=== PATIENT | male | born 1975 ===

== ENCOUNTER 2023-03-14 08:41 | Emergency (ER) | payer SELFPAY ==
[~2023-03-14] VITALS: Ht 170.2 cm; Wt 74.4 kg
--- NOTE | 2023-03-14 09:10 | ED Chest Pain ---
General Chief Complaint: Chest Pain Stated Complaint: CHEST PAIN Source: patient Exam Limitations: no limitations History of Present Illness Date Seen by Provider: Mar 14, 2023 Time Seen by Provider: 08:56 Initial Comments 47-year-old male presents from the [facility] clinic for chest pain. He states symptoms have been present off and on for the last 2 or 3 days but are becoming more frequent. Is described as a pressure in his left anterior chest without radiation. No obvious aggravating or alleviating factors, and not specifically associated with exertion. He has had some occasional nausea with it but no vomiting. No recent fevers chills cough abdominal pain or changes in bowel or bladder habits. He has never had similar symptoms in the past. No known cardiac history. He does take medicines for high blood pressure and high cholesterol. He is a non-smoker. All other systems reviewed and negative except documented per HPI. Voice recognition software was used to help create this chart Allergies and Home Medications Allergies Coded Allergies: No Known Drug Allergies (Unverified , 03/14/23) Patient Home Medication List Home Medication List Reviewed: Yes Review of Systems Review of Systems Constitutional: see HPI Past Jqkwfrf-[id number]-[id number] Hx Patient Social History Tobacco Use?: No Use of E-Cig and/or Vaping dev: No Substance use?: No Alcohol Use?: No Physical Exam Vital Signs Vital Signs - First Documented 03/14/23 03/14/23 08:51 10:04 Temp 36.1 Pulse 72 Resp 17 B/P (MAP) 133/98 (110) Pulse Ox 100 O2 Delivery Room Air Capillary Refill : Height, Weight, BMI Height: '" Weight: lbs. oz. kg; BMI Method: General Appearance: No Apparent Distress, WD/WN HEENT: Normal ENT Inspection, Pharynx Normal Neck: Full Range of Motion, Normal Inspection, Non Tender, Supple Respiratory: Chest Non Tender, Lungs Clear, Normal Breath Sounds, No Accessory Muscle Use, No Respiratory Distress Cardiovascular: Regular Rate, Rhythm, No Murmur, Normal Peripheral Pulses Gastrointestinal: Normal Bowel Sounds, No Organomegaly, Non Tender, Soft Extremity: Normal Capillary Refill, Normal Inspection, No Pedal Edema Neurologic/Psychiatric: Alert, Oriented x3 Skin: Normal Color, Warm/Dry Progress/Results/Core Measures Results/Orders Lab Results Laboratory Tests Test 03/14/23 08:59 Range/Units White Blood Count 4.8 4.3-11.0 10^3/uL Red Blood Count 4.93 4.30-5.52 10^6/uL Hemoglobin 14.3 13.3-17.7 g/dL Hematocrit 44 40-54 % Mean Corpuscular Volume 89 80-99 fL Mean Corpuscular Hemoglobin 29 25-34 pg Mean Corpuscular Hemoglobin Concent 33 32-36 g/dL Red Cell Distribution Width 13.2 10.0-14.5 % Platelet Count 201 130-400 10^3/uL Mean Platelet Volume 10.3 9.0-12.2 fL Immature Granulocyte % (Auto) 0 % Neutrophils (%) (Auto) 56 42-75 % Lymphocytes (%) (Auto) 32 12-44 % Monocytes (%) (Auto) 9 0-12 % Eosinophils (%) (Auto) 2 0-10 % Basophils (%) (Auto) 1 0-10 % Neutrophils # (Auto) 2.7 1.8-7.8 10^3/uL Lymphocytes # (Auto) 1.6 1.0-4.0 10^3/uL Monocytes # (Auto) 0.4 0.0-1.0 10^3/uL Eosinophils # (Auto) 0.1 0.0-0.3 10^3/uL Basophils # (Auto) 0.0 0.0-0.1 10^3/uL Immature Granulocyte # (Auto) 0.0 0.0-0.1 10^3/uL Sodium Level 139 135-145 MMOL/L Potassium Level 4.5 3.6-5.0 MMOL/L Chloride Level 105 98-107 MMOL/L Carbon Dioxide Level 24 21-32 MMOL/L Anion Gap 10 5-14 MMOL/L Blood Urea Nitrogen 14 7-18 MG/DL Creatinine 1.11 0.60-1.30 MG/DL Estimat Glomerular Filtration Rate 82 BUN/Creatinine Ratio 13 Glucose Level 91 70-105 MG/DL Calcium Level 9.3 8.5-10.1 MG/DL Corrected Calcium 8.5-10.1 MG/DL Magnesium Level 2.2 1.6-2.4 MG/DL Total Bilirubin 0.9 0.1-1.0 MG/DL Aspartate Amino Transf (AST/SGOT) 22 5-34 U/L Alanine Aminotransferase (ALT/SGPT) 24 0-55 U/L Alkaline Phosphatase 96 40-136 U/L Troponin I < 0.028 <0.028 NG/ML Total Protein 7.8 6.4-8.2 GM/DL Albumin 4.6 H 3.2-4.5 GM/DL My Orders Orders - ESTERMILVIA DiazDirk Millan DO Ekg Tracing (03/14/23 08:56) Cbc And Automated Diff (03/14/23 09:06) Magnesium (03/14/23 09:06) Chest 1 View, Ap/Pa Only (03/14/23 09:06) Ekg Tracing (03/14/23 09:06) Comprehensive Metabolic Panel (03/14/23 09:06) Ed Iv/Invasive Line Start (03/14/23 09:06) Troponin I Isela (03/14/23 09:06) Aspirin Chewable Tablet (Aspirin Chewabl (03/14/23 09:15) Medications Given in ED Current Medications Medications Dose Ordered Sig/Magen Route Start Time Stop Time Status Last Admin Dose Admin Aspirin 324 mg ONCE ONCE PO 03/14/23 09:15 03/14/23 09:16 DC 03/14/23 09:29 324 MG Vital Signs/I&O 03/14/23 03/14/23 08:51 10:04 Temp 36.1 Pulse 72 66 Resp 17 B/P (MAP) 133/98 (110) 126/100 Pulse Ox 100 O2 Delivery Room Air Room Air Comment Sinus rhythm with a rate of 71 bpm. Normal intervals. Left axis deviation. No ST or T wave abnormalities. No ectopy. No STEMI. Departure Communication (Admissions) Heart score is 3 based on age and risk factors. His cardiac workup is negative. EKG is non ischemic. trop negative. Chest x-ray shows no acute cardiopulmonary abnormalities on my independent review. I also independently reviewed all his labs. He stable for discharge home with close follow-up and stress testing. Impression Primary Impression: Chest pain Qualified Codes: R07.9 - Chest pain, unspecified Disposition: 01 HOME, SELF-CARE Condition: Stable Departure-Patient Inst. Referrals: BREANNE CABRERA MD FACP FACC CCDS ROSAS LUKE APRN (PCP) Primary Care Physician Patient Instructions: Chest Pain (DC) Add. Discharge Instructions: As discussed your work-up in the emergency department is unremarkable. This does not mean that you do not have blockages in your heart that may require stenting. I recommend you get further evaluation from your primary doctor and follow-up with the hotel valet attendant by calling to schedule an appointment. They may want you to have a stress test performed which further evaluates the arteries in your heart. Return to the emergency department for any severe chest pain that is not relieved with rest, severe shortness of breath or if your symptoms change in any way concerning to you. Follow-up with your primary doctor in the next 7 days to discuss further treatment All discharge instructions reviewed with patient and/or family. Voiced understanding. MORIAH NORMAN DO Mar 14, 2023 09:10
[2023-03-14 09:11] LABS: BASOPHILS % (AUTO) 1 % (0-10); EOSINOPHILS # (AUTO) 0.1 10^3/uL (0.0-0.3); EOSINOPHILS % (AUTO) 2 % (0-10); HEMATOCRIT 44 % (40-54); HEMOGLOBIN 14.3 g/dL (13.3-17.7); LYMPHOCYTES # (AUTO) 1.6 10^3/uL (1.0-4.0); LYMPHOCYTES % (AUTO) 32 % (12-44); MEAN CORPUSCULAR HEMOGLOBIN 29 pg (25-34); MEAN CORPUSCULAR HGB CONC 33 g/dL (32-36); MEAN CORPUSCULAR VOLUME 89 fL (80-99); MEAN PLATELET VOLUME 10.3 fL (9.0-12.2); MONOCYTES # (AUTO) 0.4 10^3/uL (0.0-1.0); MONOCYTES % (AUTO) 9 % (0-12); NEUTROPHILS # (AUTO) 2.7 10^3/uL (1.8-7.8); NEUTROPHILS % (AUTO) 56 % (42-75); PLATELET COUNT 201 10^3/uL (130-400); WHITE BLOOD COUNT 4.8 10^3/uL (4.3-11.0)
[2023-03-14] MEDS ORDERED: ASPIRIN 81 MG CHEWABLE TABLET PO ONE (09:15)
[2023-03-14 09:19] LABS: ALBUMIN 4.6 GM/DL (3.2-4.5); CHLORIDE 105 MMOL/L (98-107); POTASSIUM 4.5 MMOL/L (3.6-5.0); SODIUM 139 MMOL/L (135-145)
[2023-03-14 09:21] LABS: CALCIUM 9.3 MG/DL (8.5-10.1)
[2023-03-14 09:22] LABS: GLUCOSE 91 MG/DL (70-105); TOTAL PROTEIN 7.8 GM/DL (6.4-8.2)
[2023-03-14 09:23] LABS: CARBON DIOXIDE 24 MMOL/L (21-32)
[2023-03-14 09:24] LABS: BILIRUBIN,TOTAL 0.9 MG/DL (0.1-1.0)
[2023-03-14 09:25] LABS: ALKALINE PHOSPHATASE 96 U/L (40-136)
[2023-03-14 09:26] LABS: CREATININE SERUM 1.11 MG/DL (0.60-1.30); GFR ESTIMATED 82
[2023-03-14 09:27] LABS: BUN/CREATININE RATIO 13
[2023-03-14 09:28] LABS: ALANINE AMINOTRANSFERASE 24 U/L (0-55); MAGNESIUM 2.2 MG/DL (1.6-2.4)
--- NOTE | 2023-03-14 09:38 | Diagnostic Imaging Report ---
EXAMINATION: Chest 1 view HISTORY: Chest pain COMPARISON: None available. FINDINGS: The lungs are clear without edema or pneumonia. No pleural effusion or pneumothorax. Heart size is normal. IMPRESSION: 1. Clear lungs. Dictated by: Dictated on workstation # [id number]
[2023-03-14 10:04] VITALS: BP 126/100
== END 2023-03-14 10:09 | disposition home or self-care (01) ==
LOC: ER 08:45
DX: R07.89 Other chest pain (principal); I10 Essential (primary) hypertension; E78.5 Hyperlipidemia, unspecified
CPT/HCPCS: 36415; 71045; 80053; 83735; 84484; 85025; 93005